=== PATIENT | male | born 1960 | race Caucasian/White ===

== ENCOUNTER → 2017-07-26 | Outpatient (CLI) | payer BC | END | disposition home or self-care (01) | LOC: NM 06:53 | DX: E03.9 Hypothyroidism, unspecified (principal) ==

== ENCOUNTER 2019-11-07 11:10 | Emergency (ER) | payer BC ==
[~2019-11-07] VITALS: Ht 195.5 cm; Wt 111.1 kg
[2019-11-07 12:11] LABS: BASO % 0.2 % (0.0-1.0); HEMATOCRIT 47.8 % (42.0-52.0); LYMPH # 1.7 10*3/uL (1.3-4.4); LYMPH % 13.2 % (27.0-41.0); MEAN CELL VOLUME 94.1 fl (80.0-94.0); MEAN CORPUSCULAR HGB 31.5 pg (27.0-31.0); MEAN CORPUSCULAR HGB CONC 33.5 g/dl (33.0-37.0); MEAN PLATELET VOLUME 9.7 fl (9.6-12.3); MONO # 0.5 10*3/uL (0.1-1.0); MONO % 3.9 % (3.0-9.0); NEUT # 10.4 10*3/uL (2.3-7.9); NEUT % 82.4 % (47.0-73.0); PLATELET COUNT AUTOMATED 237 10*3/uL (130-400); RED BLOOD COUNT 5.08 10*6/uL (4.50-5.90); WHITE BLOOD COUNT 12.6 10*3/uL (4.8-10.8)
[2019-11-07 12:22] LABS: ACT PARTIAL THROMBO TIME 28.1 SECONDS (20.0-32.1)
[2019-11-07 12:36] LABS: ALBUMIN 3.9 gm/dl (3.1-4.5); ALKALINE PHOSPHATASE 92 U/L (45-117); BUN 32 mg/dl (7-24); CHLORIDE 107 mmol/L (98-107); CREATININE 1.28 mg/dL (0.70-1.30); LIPASE 83 U/L (73-393); SGOT/AST 14 IU/L (3-35); SGPT/ALT 26 U/L (12-78); SODIUM 138 mmol/L (136-145)
[2019-11-07 12:37] LABS: TROPONIN I < 0.015 ng/ml (<0.045)
== END 2019-11-07 15:36 | disposition home or self-care (01) ==
LOC: ED 11:10
PROVIDERS: Emergency Medicine
DX: M54.12 Radiculopathy, cervical region (principal); I48.92 Unspecified atrial flutter; Z88.0 Allergy status to penicillin; Z88.1 Allergy status to other antibiotic agents

== ENCOUNTER 2020-08-20 13:01 | Emergency (ER) | payer BC ==
[~2020-08-20] VITALS: Ht 195.5 cm; Wt 108.9 kg
== END 2020-08-20 14:50 | disposition home or self-care (01) ==
LOC: ED 13:01
DX: S86.911A Strain of unspecified muscle(s) and tendon(s) at lower leg level, right leg, initial encounter (principal); Z88.0 Allergy status to penicillin; Z88.1 Allergy status to other antibiotic agents; X58.XXXA Exposure to other specified factors, initial encounter; Y93.89 Activity, other specified; Y92.89 Other specified places as the place of occurrence of the external cause; Y99.8 Other external cause status

== ENCOUNTER → 2020-12-15 | Outpatient (CLI) | payer BC | END | disposition home or self-care (01) | LOC: CARD 00:47 | PROVIDERS: ATTEND Nurse Practitioner Acute Care | DX: I44.0 Atrioventricular block, first degree (principal); I49.3 Ventricular premature depolarization ==

== ENCOUNTER 2022-08-18 07:11 | Emergency (ER) | payer BC ==
[~2022-08-18] VITALS: Ht 193 cm; Wt 102.1 kg
== END 2022-08-18 10:07 | disposition home or self-care (01) ==
LOC: ED 07:11
DX: M25.511 Pain in right shoulder (principal); Z88.0 Allergy status to penicillin; Z88.1 Allergy status to other antibiotic agents